=== PATIENT | female | born 1975 ===

== ENCOUNTER → 2025-01-22 10:46 | Outpatient (REF) | payer MEDICAID, SELFPAY | LOC: RAD 10:46 | PROVIDERS: ATTENDING PHYSICIAN Internal Medicine Cardiovascular Disease | DX: R07.2 Precordial pain (principal); E78.5 Hyperlipidemia, unspecified; Z68.30 Body mass index [BMI] 30.0-30.9, adult; Z82.49 Family history of ischemic heart disease and other diseases of the circulatory system | CPT/HCPCS: 75574; Q9967 ==